=== PATIENT | male | born 1955 | race Caucasian/White ===

== ENCOUNTER 2017-10-01 18:50 | Emergency (ER) | payer OTHER ==
[~2017-10-01] VITALS: Ht 177.8 cm; Wt 114.3 kg
--- NOTE | 2017-10-01 19:02 | NUR ---
RECIEVED PATENT TO ED BED 09. PT WAS [id number] FOR S/P WITNESSED SYNCOPE. PT DENIES ANY COMPLAINT AT THIS TIME. PT IS A/OX3. PT HAS AN ON GONG IV FLUIDS ESTARTED BY PARAMEDICS. NAD VSS RR EVEN AND UNLABORED. PENDING ER MD EVALUATION
--- NOTE | 2017-10-01 19:22 | NUR ---
MAE PHONE NUMBER [phone]
[2017-10-01] MEDS ORDERED: IV NS 0.9% 1,000 ML BAG IV ONE (19:30)
[2017-10-01 19:39] LABS: BASOPHILS # (AUTO) 0.1 /CMM (0.0-0.2); BASOPHILS % (AUTO) 0.9 % (0.0-2.0); EOSINOPHILS % (AUTO) 0.6 % (0.0-6.0); HEMATOCRIT 48 % (39-51); HEMOGLOBIN 16.3 g/dL (13.5-17.5); LYMPHOCYTES # (AUTO) 1.4 /CMM (0.8-4.8); LYMPHOCYTES % (AUTO) 9.2 % (20.0-44.0); MEAN CORPUSCULAR HGB CONC 34 g/dl (31.0-36.0); MEAN CORPUSCULAR VOLUME 85 fL (80-96); MONOCYTES # (AUTO) 1.1 /CMM (0.1-1.30); MONOCYTES % (AUTO) 7.5 % (2.0-12.0); NEUTROPHILS # (AUTO) 12.6 /CMM (1.8-8.9); NEUTROPHILS % (AUTO) 81.8 % (43.0-81.0); PLATELET COUNT (AUTO) 252 /CMM (150-450); RDW COEFFICIENT OF VARIATION 15.2 (11.5-15.0); WHITE BLOOD COUNT (AUTO) 15.3 K/uL (4.3-11.0)
[2017-10-01 19:58] LABS: CALCIUM, SERUM 8.8 mg/dL (8.5-10.1); CARBON DIOXIDE 21 mmol/L (21-32); CHLORIDE 107 mmol/L (98-107); CREATININE 1.9 mg/dL (0.6-1.3); GLUCOSE 126 mg/dL (74-106); POTASSIUM 4.5 mmol/L (3.5-5.1); SODIUM SERUM 141 mmol/L (136-145); UREA NITROGEN, BLOOD 19 mg/dL (7-18)
[2017-10-01 20:06] LABS: ALANINE AMINOTRANSFERASE 33 U/L (12-78); ALBUMIN 3.8 g/dL (3.4-5.0); ALKALINE PHOSPHATASE 79 U/L (46-116); ASPARTATE AMINOTRANSFERASE 30 U/L (15-37); BILIRUBIN,DIRECT 0.1 mg/dL (0.0-0.2); BILIRUBIN,TOTAL 0.7 mg/dL (0.2-1.0); TOTAL PROTEIN, SERUM 7.2 g/dL (6.4-8.2)
[2017-10-01 20:10] LABS: INR 1.06 (0.87-1.13)
--- NOTE | 2017-10-01 20:31 | NUR ---
spoke to pt regarding pt discharge per pt request. eta 30min
[2017-10-01 20:33] LABS: TROPONIN I < 0.017 ng/mL (0.00-0.056)
--- NOTE | 2017-10-01 21:40 | NUR ---
IV removed. Catheter intact and site benign. Pressure and 4x4 applied to site. No bleeding noted. Patient discharged to home in stable condition. Written and verbal after care instructions given. Patient verbalizes understanding of instruction. ambulatory with a steady gait noted. pt aaox4 no acute distres noted, resp even and unlabored. pt at bedside to take pt home.
[2017-10-01 21:43] VITALS: BP 127/75
== END 2017-10-01 21:43 | disposition home or self-care (01) ==
LOC: ER 18:53
DX: R55 Syncope and collapse (principal); N28.9 Disorder of kidney and ureter, unspecified; F10.10 Alcohol abuse, uncomplicated; I10 Essential (primary) hypertension
CPT/HCPCS: 36415; 70450-TC; 71045-TC; 80048-TC; 80076-TC; 84484-TC; 85025-TC; 85730-TC; A4606; J7030; Z7610